=== PATIENT | male | born 1985 ===

== ENCOUNTER 2020-09-18 17:34 | Emergency (ER) | payer OTHER, SELFPAY | END 2020-09-18 18:04 | disposition home or self-care (01) | LOC: MADERS 17:34 | DX: S00.93XA Contusion of unspecified part of head, initial encounter (principal); I10 Essential (primary) hypertension; V44.5XXA Car driver injured in collision with heavy transport vehicle or bus in traffic accident, initial encounter | CPT/HCPCS: 99283 ==